=== PATIENT | female | born 1995 | race Two or more races ===

== ENCOUNTER 2018-09-02 03:27 | Emergency (ER) | payer SELFPAY ==
--- NOTE | 2018-09-02 03:56 | ED PDOC ---
HPI: Psych/Substance Abuse Time Seen by Provider: 09/02/18 03:30 Chief Complaint (Nursing): Psychiatric Evaluation Chief Complaint (Provider): Psychiatric Evaluation ED Caveat: Intoxicated History Per: EMS History/Exam Limitations: intoxication Modifying Factor(s): Alcohol Severity: Moderate Associated Symptoms: Agitation Additional History Per: EMS, Law Enforcement Additional Complaint(s): 22 year old female brought into the ED by EMS and [place] police department for public intoxication. Unable to obtain HPI due to caveat (intoxication). Past Medical History Reviewed: Historical Data, Nursing Documentation, Vital Signs - Family History Family History: States: Unknown Family Hx - Allergies Allergies/Adverse Reactions: Allergies Allergy/AdvReac Type Severity Reaction Status Date / Time Unobtainable Allergy Verified 09/02/18 03:43 Review of Systems Review Of Systems: ROS cannot be obtained secondary to pt's inabilty to answer questions. Physical Exam - Reviewed Nursing Documentation Reviewed: Yes Vital Signs Reviewed: Yes - Physical Exam Appears: Positive for: Non-toxic, No Acute Distress. Negative for: Well (agitated) Head Exam: Positive for: ATRAUMATIC, NORMOCEPHALIC Skin: Positive for: Normal Color Respiratory: Positive for: Normal Breath Sounds Neurologic/Psych: Positive for: Alert, Oriented (3x), Other (slurred speech) - Laboratory Results Result Diagrams: 09/02/18 04:20 09/02/18 04:20 - Critical Care Total Time (In Min): 30 Medical Decision Making Medical Decision Makin:30 Initial impression: 22 year old female agitated insetting of alcohol abuse Initial plan: * chem * upreg * udip * urinalysis * accucheck * CBC * ativan 2 mg IM once * haldol mg IM * 1:1 observation * 4 point restraint * reevaluation 7:00 Patient is being signed out to Juan Ramon Bill MD pending sobriety and reevaluation. Scribe Attestation: Documented by Shannan Weaver, acting as a scribe for Kristian Jin MD. Provider Scribe Attestation: All medical record entries made by the Scribe were at my direction and personally dictated by me. I have reviewed the chart and agree that the record accurately reflects my personal performance of the history, physical exam, medical decision making, and the department course for this patient. I have also personally directed, reviewed, and agree with the discharge instructions and disposition. Disposition - Clinical Impression Clinical Impression: Alcohol intoxication - Patient ED Disposition Is Patient to be Admitted: Transfer of Care - Disposition Disposition: Transfer of Care Disposition Time: 07:00 Condition: FAIR Additional Instructions: LIVIA PRESSLEY, thank you for letting us take care of you today. Your provider was Juan Ramon Bill MD and you were treated for CRISIS. The emergency medical care you received today was directed at your acute symptoms. If you were prescribed any medication, please fill it and take as directed. It may take several days for your symptoms to resolve. Return to the Emergency Department if your symptoms worsen, do not improve, or if you have any other problems. Please contact your doctor or call one of the physicians/clinics you have been referred to that are listed on the Patient Visit Information form that is included in your discharge packet. Bring any paperwork you were given at discharge with you along with any medications you are taking to your follow up visit. Our treatment cannot replace ongoing medical care by a primary care provider outside of the emergency department. Thank you for allowing the [facility] team to be part of your care today. If you had an X-Ray or CT scan: A Radiologist will review the ED reading if any change in treatment is needed we will contact you. If you had a blood, urine, or wound culture: It will take several days for the results, if any change in treatment is needed we will contact you. If you had an STI test: It will take 48 hours for the results. Please call after 1 week if you have not heard back. Instructions: Alcohol Abuse and Alcoholism (DC) Patient Signed Over To: Juan Ramon Bill
[2018-09-02 04:57] LABS: ALB/GLOB RATIO 1.3 (1.0-2.1); ALBUMIN 4.4 g/dL (3.5-5.0); ALT/SGPT 26 U/L (9-52); AST/SGOT 28 U/L (14-36); BLOOD UREA NITROGEN 12 mg/dl (7-17); CALCIUM 9.1 mg/dL (8.4-10.2); GFR NON-AFRICAN AMERICAN > 60
[2018-09-02 05:11] LABS: BASO # 0.1 K/uL (0.0-0.2); BASO % 0.8 % (0.0-2.0); EOS # 0.3 K/uL (0.0-0.7); EOS % 4.2 % (0.0-4.0); HEMOGLOBIN 13.3 g/dL (12.0-16.0); LYMPH # 3.1 K/uL (1.0-4.3); LYMPH % 41.4 % (20.0-40.0); MEAN CELL VOLUME 71.9 fl (81.0-99.0); MEAN CORPUSCULAR HEMOGLOBIN 23.1 pg (27.0-31.0); MEAN CORPUSCULAR HGB CONC 32.2 g/dL (33.0-37.0); MONO # 0.6 K/uL (0.0-0.8); MONO % 7.4 % (0.0-10.0); NEUT # 3.5 K/uL (1.8-7.0); NEUT % 46.2 % (50.0-75.0); NRBC % 0.1 % (0.0-0.0); RBC 5.73 Mil/uL (3.80-5.20); RED CELL DISTRIBUTION WIDTH 15.2 % (11.5-14.5); WHITE BLOOD COUNT 7.5 K/uL (4.8-10.8)
--- NOTE | 2018-09-02 07:17 | ED PDOC ---
- Laboratory Results Result Diagrams: 09/02/18 04:20 09/02/18 04:20 - ECG O2 Sat by Pulse Oximetry: 95 - Progress Re-evaluation Time: 13:03 Condition: Re-examined, Improved Medical Decision Making Medical Decision Makin Patient endorsed to me by Dr. Jin pending sobriety. Scribe Attestation: Documented by Yovanny Guerin, acting as a scribe for Juan Ramon Bill MD. Provider Scribe Attestation: All medical record entries made by the Scribe were at my direction and personally dictated by me. I have reviewed the chart and agree that the record accurately reflects my personal performance of the history, physical exam, medical decision making, and the department course for this patient. I have also personally directed, reviewed, and agree with the discharge instructions and disposition. Disposition Doctor Will See Patient In The: Office Counseled Patient/Family Regarding: Studies Performed, Diagnosis, Need For Followup - Clinical Impression Clinical Impression: Alcohol intoxication - POA Present On Arrival: None - Disposition Disposition: Routine/Home Disposition Time: 13:03 Condition: IMPROVED Additional Instructions: LIVIA PRESSLEY, thank you for letting us take care of you today. Your provider was Juan Ramon Bill MD and you were treated for CRISIS. The emergency medical care you received today was directed at your acute symptoms. If you were prescribed any medication, please fill it and take as directed. It may take several days for your symptoms to resolve. Return to the Emergency Department if your symptoms worsen, do not improve, or if you have any other problems. Please contact your doctor or call one of the physicians/clinics you have been referred to that are listed on the Patient Visit Information form that is included in your discharge packet. Bring any paperwork you were given at disch arge with you along with any medications you are taking to your follow up visit. Our treatment cannot replace ongoing medical care by a primary care provider outside of the emergency department. Thank you for allowing the [facility] team to be part of your care today. If you had an X-Ray or CT scan: A Radiologist will review the ED reading if any change in treatment is needed we will contact you. If you had a blood, urine, or wound culture: It will take several days for the results, if any change in treatment is needed we will contact you. If you had an STI test: It will take 48 hours for the results. Please call after 1 week if you have not heard back. Instructions: Alcohol Abuse and Alcoholism (DC)
[2018-09-02 12:25] LABS: SQUAMOUS EPITHIAL 1 /hpf (0-5); URINE BACTERIA RARE (<OCC); URINE BILIRUBIN NEGATIVE (NEGATIVE); URINE BLOOD LARGE (NEGATIVE); URINE CLARITY SLIGHTY-CLOUDY (Clear); URINE COLOR YELLOW (YELLOW); URINE GLUCOSE (UA) NEG (Normal); URINE LEUKOCYTE ESTERASE NEG Leu/uL (Negative); URINE PROTEIN NEGATIVE (NEGATIVE); URINE UROBILINOGEN 0.2-1.0 mg/dL (0.2-1.0)
[2018-09-02 12:26] LABS: BARBITURATES, UR NEGATIVE (NEGATIVE); BENZODIAZEPINES, UR NEGATIVE (NEGATIVE); OPIATES, UR NEGATIVE (NEGATIVE); PHENCYCLIDINE, UR NEGATIVE (NEGATIVE)
[2018-09-02 13:03] VITALS: BP 114/71; PULSE 77; RESP 18; TEMP 97.5; O2SAT 95
== END 2018-09-02 13:10 | disposition home or self-care (01) ==
LOC: H.ER 03:27
DX: F10.129 Alcohol abuse with intoxication, unspecified (principal)
CPT/HCPCS: 80053; 81003; 81025; 82948; 85025; 96372; 99285; G0480; J1630; J2060